=== PATIENT | female | born 1945 | race Caucasian/White ===

== ENCOUNTER 2018-03-07 18:07 | Emergency (ER) | payer MEDICARE, BC ==
[~2018-03-07] VITALS: Ht 160 cm; Wt 81.7 kg
[~2018-03-07 18:07] MED LIST: ACETAMINOPHEN325 M1 PO; AEROECLIPSE II1 EACH MISC; ALBUTEROL2.5 MG/3 M INH; ASPIR 8181 MG PO; ASPIRIN EC81 MG PO; ATORVASTATIN CA40 MG PO; BIAXIN250 MG PO; CENTRUM SILVER1 EAC5 PO; DEMADEX20 MG PO; DOCUSATE PO; ELIQUIS5 MG PO; FOLIC ACID1 MG PO; FUROSEMIDE40 MG PO; HYDROXYZINE HCL25 MG PO; K-TAB10 MEQ PO; LACTULOSE10 GM/15 M PO; LASIX20 MG PO; LEVOTHYROXINE150 MCG PO; LIVER COMPLEX1 EACH PO; LOPERAMIDE2 MG PO; LUTEIN40 MG PO; MELOXICAM15 MG PO; METOLAZONE5 MG PO; METOPROLOL SUCC25 MG PO; MIRALAX17 GM PO; MOVE FREE JOIN1 EACH PO; MULTIVITAMINS1 EAC7 PO; NORCO 5-325 TA1 EACH PO; NOVOLIN N100 UNIT/1 SUB-Q; NYSTATIN100000 UN1 PO; PEPCID20 MG PO; PERCOCET 5-3251 EACH PO; POTASSIUM CHLO20 ME1 PO; PRAVASTATIN SOD40 MG PO; PREDNISONE20 MG PO; PROMETHAZINE HC25 M1 PO; PROVENTIL HFA6.7 GM INH; RISPERDAL0.5 MG PO; ROZEREM8 MG PO; SENNA8.6 MG PO; SPIRONOLACTONE50 MG PO; TACROLIMUS1 MG PO; TRAZODONE HCL150 MG PO; TRAZODONE HCL50 MG PO; VITAMIN A25000 UNIT PO; VITAMIN C100 MG PO; VITAMIN D1000 UNI1 PO; VITAMIN E1000 UNI1 PO; XIFAXAN550 MG PO; ZINC SULFATE220 M1 PO; ZITHROMAX250 MG PO; ZITHROMAX500 MG PO; ZOFRAN4 MG PO
[2018-03-07] MEDS ORDERED: PREDNISONE20 MG PO (19:25)
[2018-03-07] MEDS ORDERED: CLARITHROMYCIN500 MG PO (19:25)
== END 2018-03-07 19:42 | disposition home or self-care (01) ==
LOC: ED 18:07
DX: J20.9 Acute bronchitis, unspecified (principal); I50.9 Heart failure, unspecified; E11.40 Type 2 diabetes mellitus with diabetic neuropathy, unspecified; E03.9 Hypothyroidism, unspecified; J45.909 Unspecified asthma, uncomplicated; M32.9 Systemic lupus erythematosus, unspecified; E78.00 Pure hypercholesterolemia, unspecified; Z90.710 Acquired absence of both cervix and uterus; Z88.0 Allergy status to penicillin; Z88.1 Allergy status to other antibiotic agents; Z88.5 Allergy status to narcotic agent; Z88.2 Allergy status to sulfonamides; Z88.8 Allergy status to other drugs, medicaments and biological substances; Z79.51 Long term (current) use of inhaled steroids; Z79.52 Long term (current) use of systemic steroids; Z79.82 Long term (current) use of aspirin; Z79.899 Other long term (current) drug therapy
CPT/HCPCS: 71046; 99283-25; J7512

== ENCOUNTER 2021-05-19 07:46 | Inpatient (IN) | payer MEDICARE, BC ==
[~2021-05-19] VITALS: Ht 160 cm; Wt 80.2 kg
[~2021-05-19 07:46] MED LIST changes: +CLARITHROMYCIN500 MG PO
[2021-05-19] MEDS ORDERED: TORSEMIDE20 MG PO (08:02)
[2021-05-19] MEDS ORDERED: LEVOTHYROXINE125 MCG PO (08:02)
[2021-05-19] MEDS ORDERED: TRAZODONE HCL100 MG PO (08:02)
[2021-05-19] MEDS ORDERED: METOPROLOL TART25 MG PO (08:02)
[2021-05-20] MEDS ORDERED: DICLOFENAC SOD100 G1 TOP (11:20)
[2021-05-20] MEDS ORDERED: MULTI VITAMIN1 EACH PO (12:35)
[2021-05-20] MEDS ORDERED: VITAMIN C1000 MG PO (12:36)
[2021-05-20] MEDS ORDERED: VITAMIN D31250 MC1 PO (12:38)
--- NOTE | 2021-05-20 16:30 | HP ---
[facility] [address], [place] [address] Signed ADMISSION DATE: 05/19/2021 REASON FOR ADMISSION: Small bowel obstruction. HISTORY OF PRESENT ILLNESS: This 75-year-old white woman, who is originally from [place], has been a for over 7 years. She came to live near her son, who does live locally. He apparently according to the patient does have some underlying other issues including drug addiction and so on. Indeed, the patient lives at [facility] and it is somewhat unusual arrangement from what I understand. For the past few weeks, the patient has had increasing vague abdominal pain. She began having nausea and vomiting, presented to the emergency room, where she was evaluated by Dr. Sha Mon. Her evaluation included a CT scan of the abdomen showed markedly dilated stomach and proximal small bowel and complete decompression of the small bowel beginning in a relatively proximal level related to a relatively discrete transition point in the left upper abdomen. The patient has undergone hysterectomy in the distant past as well as abdominoplasty. The patient has a rare and unusual of a prior history of constrictive pericarditis causing progressive hepatopathy and other issues. This was several years ago. In any case, pericardiectomy allowed for complete resolution of her problem and she continues to do well overall. Her other medical issues include congestive heart failure, neuropathy, hypothyroidism, self-described lupus, diabetes, hypercholesterolemia, history of pericarditis as described. PAST SURGICAL HISTORY: Include breast reduction, abdominoplasty, hysterectomy, multiple ankle operations particularly on the right side ultimately culminating in ankle fusion. ALLERGIES: She is self described as having allergies to penicillin and Keflex, angioedema; Valium, angioedema; meperidine, angioedema; sulfacetamide and tetracycline, angioedema. SOCIAL HISTORY: She is not working. She is on a fixed income. She is a as described. Electronically Signed By: CHUCK PAREDES MD 05/20/21 7310 PATIENT NAME: AGIL SCHMITZ HISTORY AND PHYSICAL DATE OF : 43 REPORT #: [id number] PHYSICIAN: CHUCK PAREDES MD PCP: HANK DAMON MD REPORT IS CONFIDENTIAL AND NOT TO BE RELEASED WITHOUT AUTHORIZATION [facility] [address], [place] [address] Signed CURRENT MEDICATIONS: Include Synthroid 125 mcg p.o. daily, metoprolol 25 mg p.o. daily, trazodone 100 mg p.o. daily, and torsemide 20 mg p.o. daily. REVIEW OF SYSTEMS: Since the nasogastric tube was in place, she has been feeling much better. She has had no blood per rectum or hematemesis. She does not have much in the way of abdominal pain at this time. PHYSICAL EXAMINATION: GENERAL: Pleasant woman, who looks to be in no severe distress; she is not systemically toxic. VITAL SIGNS: Temperature is 98.5, blood pressure 138/76, pulse oximetry on room air is 97%, pulse rate is 96, respirations 16 to 19. NECK: Shows no thyromegaly or cervical adenopathy. Trachea is midline. Supplemental oxygen is in place. CHEST: Shows normal respiratory excursion without wheeze or rhonchi. ABDOMEN: Rather large, but scaphoid and flat overall. There are small incisions likely related to prior hysterectomy and other interventions. Palpation reveals fullness of the abdomen. No focal tenderness and certainly no peritonitis. EXTREMITIES: Show no clubbing, cyanosis, or edema. LABORATORY STUDIES: Shows white count 10.0, hematocrit 49.6, platelets 251,000. D-dimer was considered 1.20, normal is up to 0.5. Her Chem profile shows a chloride of only 91, glucose is 154, alkaline phosphatase elevated at 132. Troponin high sensitivities 8.9 (normal) and BNP 301 (normal less than 450). Imaging studies were reviewed in detail include abdominal and chest CT. She shows no evidence of pulmonary embolism. She does have multiple pulmonary nodules, which are of uncertain etiology. She has some residual material within the trachea suggestive of mucus and right pleural thickening and calcification. Subacute-appearing left anterolateral rib fractures were noted. It is noted that in March, the patient did have a fall and this may account for that finding. ASSESSMENT: Review of the CT scan and her clinical diagnosis suggest severe and high-grade small bowel obstruction, specifically noted for very good decompression presumably downstream from the obstructive site. Electronically Signed By: CHUCK PAREDES MD 05/20/21 7310 PATIENT NAME: GAIL SCHMITZ HISTORY AND PHYSICAL DATE OF : 43 REPORT #: [id number] PHYSICIAN: CHUCK PAREDES MD PCP: HANK DAMON MD REPORT IS CONFIDENTIAL AND NOT TO BE RELEASED WITHOUT AUTHORIZATION [facility] [address], [place] [address] Signed She has already been admitted with a nasogastric tube for decompression and is given IV fluids. We will watch carefully and repeat a KUB tomorrow. She has no strict indication for emergent operation at this time specifically, nontoxic, nonhypotensive, has no significant pain. Of special note, Dr. Damon as her primary physician and has already evaluated her. His chart notes were reviewed in detail. COVID testing has thus far been proven negative. Her numerous medical problems will be comanaged by Dr. Damon, it is clear. MD SUNDAR Bolaños/ELIA /[id number] cc: MD Sha Pepper MD Copies: HANK DAMON MD, WILLIAM S MD ~ Electronically Signed By: CHUCK PAREDES MD 05/20/21 1630 PATIENT NAME: GAIL SCHMITZ HISTORY AND PHYSICAL DATE OF : 43 REPORT #: [id number] PHYSICIAN: CHUCK PAREDES MD PCP: HANK DAMON MD REPORT IS CONFIDENTIAL AND NOT TO BE RELEASED WITHOUT AUTHORIZATION
--- NOTE | 2021-05-22 22:00 | OR ---
[facility] [address], [place] [address] Signed DATE OF OPERATION: 05/19/2021 SURGEON: Chuck Paredes MD PREOPERATIVE DIAGNOSES: 1. Complete small-bowel obstruction, proximal small bowel. 2. History of constrictive pericarditis requiring pericardiectomy. POSTOPERATIVE DIAGNOSIS: Complete small-bowel obstruction related to proximal mesenteric sclerosing lesion of mesentery (question sclerosing mesenteritis-like lesion) PROCEDURE: 1. Exploratory laparotomy, lysis of adhesions and excision of central sclerosing lesion of small-bowel mesentery with resection portion of jejunum. Difficult, prolonged 2. Iubi-zs-qzts functional end-to-end enteroenterostomy. 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 Hank Damon and has a past medical history including constrictive pericarditis, for which she had congestive hepatopathy and end-stage problems, in that regard, ultimately, salvage by complete pericardiectomy. She was admitted with protracted nausea and vomiting on May 19, 2021, having been evaluated in the emergency room. A CT scan showed a high-grade obstruction with proximal small-bowel dilatation as well as marked gastric distention. A nasogastric tube was placed allowing for decompression of stomach. She does have a past surgical history of abdominoplasty as well as hysterectomy, but no prior history of bowel obstruction or other issue. She is admitted at this time having failed conservative management over the past 48 hours for exploration of the abdomen with remedy of the bowel obstruction. The risks of bleeding, infection, need for bowel resection, recurrent disease and other unforeseen complications was reviewed in detail. She understands and wished to proceed. FINDINGS: Indeed there was impressive proximal small-bowel distention only about 20 cm from the ligament of Treitz proper. The bowel was completely obstructed and drawn together in a dense cicatrix in the mesentery with complete decompression downstream of jejunal bowel Electronically Signed By: CHUCK PAREDES MD 05/22/21 2200 PATIENT NAME: GAIL SCHMITZ OPERATIVE REPORT DATE OF : 43 REPORT #: [id number] PHYSICIAN: CHUCK PAREDES MD PCP: HANK DAMON MD REPORT IS CONFIDENTIAL AND NOT TO BE RELEASED WITHOUT AUTHORIZATION [facility] [address], [place] [address] Signed loops. The segments of bowel that were obstructed were rather multiple and in aggregate approximately 1-1/2 to 2 feet of small bowel was resected. Proximal jejunum was able to be anastomosed to the impressively decompressed distal bowel, in a rnyt-al-nbss configuration (functional end-to-end). The mesenteric defect was completely closed . Of special note, several downstream segments of small-bowel had the beginnings of such cicatrical formation. Those were minimal compared to the dominant lesion today, however. There was no evidence of carcinomatosis proper. The colon had numerous diverticula and stool filled the colon itself. At conclusion, jejunal continuity has been restored and the dominant offending sclerosing lesion has been resected in conjunction with the obstructed jejunal segment. 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 DESCRIPTION OF PROCEDURE: The patient was brought to the operating room, given a general endotracheal anesthetic. Preoperative antibiotic clindamycin was given. Sequential compression device stockings used. Heparin was not given as the patient has refused the last two doses. After satisfactory general endotracheal anesthesia, a Moore catheter was placed. The abdomen was then prepared with a chlorhexidine solution and draped sterilely. An incision was made above and below the umbilicus allowing for entry into the abdomen. There was no sign of ascites or carcinomatosis. The omentum was well-positioned over the abdominal contents. In the left upper quadrant, which ultimately proved to be only 20-30 cm from the ligament of Treitz was dilated small-bowel loops and they were densely adherent to the root of the mesentery in the proximal jejunum. The incision was extended somewhat inferiorly and superiorly to allow for better examination. The dominant portion of intra-abdominal bowel loops was completely decompressed and scantly 1 cm in diameter. The more proximal bowel was dilated quite markedly to at least 4 cm and possibly more. The offending obstruction was found to be in the mesentery of the proximal small-bowel (jejunum). Multiple small-bowel loops were entrapped in this area. The dilated more proximal duct easily identified and viable. So, the effort was made taking down the adhesions to better characterize the bowel loops that were encumbered. It became clear that the dense cicatrix at the base of the mesentery would be impossible to free up from the small bowel. On that basis, resectional therapy was deemed most advisable. Electronically Signed By: CHUCK PAREDES MD 05/22/21 3244 PATIENT NAME: GAIL SCHMITZ OPERATIVE REPORT DATE OF : 43 REPORT #: [id number] PHYSICIAN: CHUCK PAREDES MD PCP: HANK DAMON MD REPORT IS CONFIDENTIAL AND NOT TO BE RELEASED WITHOUT AUTHORIZATION [facility] [address], [place] [address] Signed An area of obvious viability proximally was marked with a silk suture and a small-bowel distally somewhat freed up from the mesenteric sclerosing lesion and also demarcated. Sequential application of hemostats and tonsil clamp to the mesentery of the offending scar and bowel was undertaken securing the vascular pedicles with 3-0 silk sutures or 2-0 silk sutures as necessary. Once the segment of bowel was completely freed and the dominant portion of the sclerosing lesion removed. Plans were made for anastomosis. The small-bowel was examined distal to the area of recent inquiry and there were at least two areas downstream that had the beginning formations of similar such scarring. These areas were taken down with electrocautery dissection with special care to avoid entry into the bowel or compromise of bowel viability. Due to the very different sizes of the proximal jejunum and the distal jejunum, a pkub-id-daoq anastomosis was deemed most advisable. A stapled anastomosis was most appropriate. The transected staple line was extremely watertight and durable. Silk suture was used to align the proximal very dilated bowel with the distal very decompressed bowel. A corner of the staple device was trimmed with electrocautery and the ampoules of a AMANDA stapling device used (60 mm load size) to fashion a hdcd-ls-rgrs jejunojejunostomy. The site was sewn into a two-layer technique of running 3-0 Vicryl in the mucosal layer and interrupted 3-0 silk for the serosal layer. There appeared to be a good viable anastomosis provided and though not as long as 6 cm certainly twice the luminal diameter of the decompressed small-bowel already encountered. The mesentery defect was reapproximated with interrupted 3-0 silk suture on each side so as to avoid intraparietal herniation. Irrigation was undertaken copiously and the small-bowel returned to its natural anatomic position. The omentum was applied over the abdominal contents and the wound closed with running #1 PDS in a bidirectional fashion. Subcutaneous tissue was irrigated and the skin closed with running subcuticular 3-0 Vicryl. Steri-Strips were applied as was Acticoat dressing. In retrospect at is entirely possible that the primary pathologic process was that of sclerosing mesenteritis, however, final pathology report is pending. Additionally noted was the opening of the specimen on the back table including the area of cicatrix at the root of the mesentery causing the obstruction. There were two notable foreign bodies, one was a square brick-like concretion and the other a seed-like foreign body. Chuck Paredes MD Electronically Signed By: CHUCK PAREDES MD 05/22/212199 PATIENT NAME: GAIL SCHMITZ OPERATIVE REPORT DATE OF : 43 REPORT #: [id number] PHYSICIAN: CHUCK PAREDES MD PCP: HANK DAMON MD REPORT IS CONFIDENTIAL AND NOT TO BE RELEASED WITHOUT AUTHORIZATION [facility] [address], [place] [address] Signed SUNDAR/MODL /[id number] cc: Hank Damon MD Copies: HANK DAMON MD ~ Electronically Signed By: CHUCK PAREDES MD 05/22/21 2200 PATIENT NAME: GAIL SCHMITZ OPERATIVE REPORT DATE OF : 43 REPORT #: [id number] PHYSICIAN: CHUCK PAREDES MD PCP: HANK DAMON MD REPORT IS CONFIDENTIAL AND NOT TO BE RELEASED WITHOUT AUTHORIZATION
--- NOTE | 2021-05-23 18:19 | EKG ---
[facility] [address] [facility] [place] [address] Signed Normal sinus rhythm Nonspecific T wave abnormality Abnormal ECG When compared with ECG of 06-MAY-2016 14:04, No significant change was found Confirmed by ALVIN MALAGON MD ([id number]) on 05/23/2021 6:19:14 PM Electronically Signed By: ALVIN MALAGON MD 05/23/21 1819 PATIENT NAME: GAIL SCHMITZ LOU Electrocardiogram DATE OF : 43 PHYSICIAN: ALVIN MALAGON MD REPORT #: [id number] REPORT IS CONFIDENTIAL AND NOT TO BE RELEASED WITHOUT AUTHORIZATION
--- NOTE | 2021-05-23 18:25 | EKG ---
[facility] [address] [facility] [place] [address] Signed Sinus rhythm with premature atrial complexes Nonspecific T wave abnormality Abnormal ECG When compared with ECG of 21-MAY-2021 10:37, (Unconfirmed) premature atrial complexes are now present Confirmed by ALVIN MALAGON MD ([id number]) on 05/23/2021 6:24:56 PM Electronically Signed By: ALVIN MALAGON MD 05/23/21 1825 PATIENT NAME: GAIL SCHMITZ Electrocardiogram DATE OF : 43 PHYSICIAN: ALVIN MALAGON MD REPORT #: [id number] REPORT IS CONFIDENTIAL AND NOT TO BE RELEASED WITHOUT AUTHORIZATION
--- NOTE | 2021-05-27 08:07 | EKG ---
[facility] [address] [facility] [place] [address] Signed Sinus tachycardia Incomplete left bundle branch block ST \T\ T wave abnormality, consider inferolateral ischemia Abnormal ECG When compared with ECG of 23-MAY-2021 02:15, premature atrial complexes are no longer present Incomplete left bundle branch block is now present Confirmed by ALVIN MALAGON MD ([id number]) on 05/27/2021 8:07:13 AM Electronically Signed By: ALVIN MALAGON MD 05/27/21 0807 PATIENT NAME: GAIL SCHMITZ Electrocardiogram DATE OF : 43 PHYSICIAN: ALVIN MALAGON MD REPORT #: [id number] REPORT IS CONFIDENTIAL AND NOT TO BE RELEASED WITHOUT AUTHORIZATION
--- NOTE | 2021-05-27 23:55 | EKG ---
[facility] [address] [facility] [place] [address] Signed Atrial fibrillation with rapid ventricular response Abnormal ECG When compared with ECG of 26-MAY-2021 17:21, Atrial fibrillation has replaced Sinus rhythm T wave inversion no longer evident in Inferior leads T wave inversion no longer evident in Lateral leads Confirmed by HANK DAMON MD ([id number]) on 05/27/2021 11:55:33 PM Electronically Signed By: HANK DAMON MD 05/27/21 2355 PATIENT NAME: GAIL SCHMITZ Electrocardiogram DATE OF : 43 PHYSICIAN: HANK DAMON MD REPORT #: [id number] REPORT IS CONFIDENTIAL AND NOT TO BE RELEASED WITHOUT AUTHORIZATION
--- NOTE | 2021-05-28 13:50 | DS ---
[facility] [address], [place] [address] Signed ADMISSION DATE: 05/19/2021 DISCHARGE DATE: 05/28/2021 DATE OF SURGERY: 05/21/2021. FINAL DIAGNOSES: 1. Multiple abdominal abscesses/fluid collections. 2. Proximal small-bowel obstruction. PROCEDURES: 1. Laparotomy with small-bowel resection and standard stapled ourh-up-nist anastomosis. 2. Multiple chest x-rays and abdominal x-rays. 3. CT scan of abdomen and pelvis. HISTORY OF PRESENT ILLNESS: Natasha is a 75-year-old female who actually presented with what looked like shortness of breath. The hospitalist service recognized that she actually probably had a bowel obstruction. She had been admitted and a consult had been made to the General surgery service to Dr. Paredes. She was taken the operating room then on 05/21/2021. She had an area of her proximal jejunum that had to be resected and a standard qxcf-zc-jvdk anastomosis was performed, stapled and was sutured. Her intraop and postop course initially seemed to be unremarkable. Dr. Paredes had to be out of town. I was covering in his absence. When I met Natasha the first day, she seemed to be in respiratory distress and often this will be fluid overload. I was able to talk with Natasha and she made it very clear to me that she wanted no more surgeries. I expressed my significant concern that if we did not find something soon that her condition would more than likely decline and that she would probably not live through this admission. She once again reiterated to me that she did not want any additional surgeries or procedures. She wanted to be a DNR/DNI with no tube feeds or heroic measures. We had made significant efforts to contact her family. Initially, she did not want to contact her son. Apparently, they have a strained relationship. She wanted me to contact her niece Krupa riley in [place], [place], which is at least 8 hours away. That phone number was no longer in use. She was asked us to call her brother in [place]. His name is Yordan. Unfortunately, he is retired. We were unable to find a phone number. Eventually, she allowed me to call her son, Nixon. Each day Natasha continued to decline. She steadfastly maintain her desire to have no surgery or additional procedures. We did move her over to our ICU for her BiPAP. There was some thought she had COPD with fluid overload and a chronically elevated left hemidiaphragm. We did change her antibiotics. That made no difference. We did get her CO2 from the 90s down into the 50s that did help make her mentation more clear. But again she maintained her desire to have no Electronically Signed By: GRADY TELLEZ MD 05/28/21 1350 PATIENT NAME: NATASHA SCHMITZ DISCHARGE SUMMARY DATE OF : 43 REPORT #: [id number] PHYSICIAN: GRADY TELLEZ MD PCP: HANK DAMON MD REPORT IS CONFIDENTIAL AND NOT TO BE RELEASED WITHOUT AUTHORIZATION [facility] [address] [place] [address] Signed surgeries or any additional interventions. She amazingly had a relatively benign abdominal exam. She had expected induration underneath her incision. She never flinched, grimaced or made any indication that she had pain. To me she denied pain each day I examined her. Each day I expressed my concern. Each day she steadfastly told me no more surgeries. Eventually, we were able to contact her son. He then was able to contact other family members and we found the new phone number for her niece, Krupa. Indeed, she is the medical power of crew leader/control room operator and I asked that she fax that information up to our ICU. It looks like it is dated from 2019. That I had spoke with Krupa in great detail about our concerns for Natasha. She ended up talking to multiple family members. Our hospitalist service had changed over in the new hospitalist and repeated the x-ray and it was no different. Urine was unremarkable. Blood cultures have been drawn. CT scan and pelvis had been ordered at that time. We had held off because Natasha had told us no additional surgeries or interventions. It showed multiple areas of fluid collections and abscesses throughout her abdomen. The oral contrast did leak out into the abdomen. Obviously that raises a concern for anastomotic leak. I came back in the hospital to talk with the patient and her nurse and the respiratory therapist along with our hospitalist. Unfortunately, her hospitalist got called away for admission. We did reach Krupa on the telephone once again. We explained the dire situation that Natasha was in. We would really do not feel at this point she could survive another surgery. Even then Natasha was able to tell us no more surgeries. Krupa and the family had agreed that Krupa was the medical ipgqq-is-aevzsdjq and therefore we wanted to maintain the wishes of Natasha and therefore, we had made her comfort care only. We had a long phone conversation on speaker phone with our respiratory therapist, our nurse, and myself. By about 0226 hours in the morning, she . Our ER doctor was able to pronounce her time. I have come in this morning to speak with the team and provide her dictation. I will be calling her niece Krupa later today and go over things with her once again. Thank you this ends dictation on Lenora Schmitz please send copies to my office the patient's chart Dr. joaquín Paredes. Grady Tellez MD ALB/MODL /[id number] Electronically Signed By: GRADY TELLEZ MD 05/28/21 1350 PATIENT NAME: NATASHA SCHMITZ DISCHARGE SUMMARY DATE OF : 43 REPORT #: [id number] PHYSICIAN: GRADY TELLEZ MD PCP: HANK DAMON MD REPORT IS CONFIDENTIAL AND NOT TO BE RELEASED WITHOUT AUTHORIZATION [facility] [address], [place] [address] Signed cc: MD Grady Bloaños MD UNKNOWN DOCTOR Copies: CHUCK PAREDES MD, ANDREW L MD ~ Electronically Signed By: GRADY TELLEZ MD 05/28/21 1350 PATIENT NAME: NATASHA SCHMITZ DISCHARGE SUMMARY DATE OF : 43 REPORT #: [id number] PHYSICIAN: GRADY TELLEZ MD PCP: HANK DAMON MD REPORT IS CONFIDENTIAL AND NOT TO BE RELEASED WITHOUT AUTHORIZATION
--- NOTE | 2021-06-05 10:36 | PATH ---
[facility] [address] [facility] [place], [place] [address] Signed THIS IS AN ADDENDUM REPORT SPECIMEN(S): A PROX SMALL BOWEL WITH CENTRAL OBSTRUCTION SPECIMEN(S): B MESENTERIC PERITONEAL NODULE SPECIMEN SOURCE: A. PROX SMALL BOWEL WITH CENTRAL OBSTRUCTION B. MESENTERIC PERITONEAL NODULE CLINICAL HISTORY: Assess for sclerosing mesenteritis. FINAL PATHOLOGIC DIAGNOSIS: A. Proximal small bowel, segmental resection: - Mesenteric fibromatosis. - Small bowel mucosa with no histopathologic abnormality. - Two lymph nodes with no evidence of malignancy. - Viable surgical margins, negative for fibromatosis. B. Mesenteric peritoneal nodule, excision: - Cauterized dense fibrocollagenous connective tissue, final diagnosis pending additional studies. - See Comment. COMMENT: Sections of the proximal small bowel demonstrate a dominant mass within the peripheral fibroadipose tissue comprised of spindle cells with vesicular nuclei growing in fascicles in a dense fibrous stroma. This mass is 4.9 cm in greatest dimension. The spindle cell proliferation infiltrates into the bowel wall up to the submucosa. There is no prominent inflammatory component of the lesion, though inflammation (mostly acute) is seen near the submucosal interface. The spindle cells are positive for nuclear beta-catenin and SMA, but negative for S100, CD34, DOG1, and CD117. 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 As part of [employer], this case was reviewed by another member of our pathology staff with subspecialty training in gastrointestinal pathology. Regarding specimen B: The tissue is pending additional work up with immunohistochemical stains. The diagnosis and results of the stains will be PATIENT NAME: GAIL SCHMITZ PATHOLOGY DATE OF : 43 REPORT #: [id number] PHYSICIAN: LEXUS PATHOLOGY PCP: HANK DAMON MD REPORT IS CONFIDENTIAL AND NOT TO BE RELEASED WITHOUT AUTHORIZATION [facility] [address] [place], [place] [address] Signed reported in an addendum. NAL:cml:C2NR MICROSCOPIC EXAMINATION: Histologic sections of all submitted blocks are examined by light microscopy. These findings, together with the gross examination, support the pathologic diagnosis. GROSS DESCRIPTION: Two specimens are received in two containers, labeled "CC." A. The specimen, labeled "CC, A," and designated on the requisition "proximal small bowel central obstruction *assess for sclerosing mesenteritis," is received in formalin and consists of a previously opened, 58.7 cm long, from 4.2 up to 9.2 cm in circumference bowel segment with attached adipose tissue up to 2.0 cm wide. The end with the smaller circumference is closed by a 3.2 cm long staple line, the staple line is removed, and the underlying tissue is inked blue, and adjacent to the staple line is a black suture. The opposing end is closed by a 5.6 cm long staple line which is removed, and the underlying tissue is inked orange. 2.5 cm away from the orange ink staple line is an additional black suture that is associated with a serosal nodule. The suture is inked green. The bowel serosa is burkett, mostly smooth, glistening, and has multiple burkett-white, ill-defined, adherent firm nodules from less than 0.1 up to 0.7 cm in greatest dimension. The serosal nodules are 5.0 cm from the blue ink staple line and 2.7 cm from the orange inked staple line. Additionally, the attached adipose tissue containing multiple nodular-like areas of burkett-white induration from 1.2 up to 4.9 cm in greatest dimension. The largest of the nodules is previously incised, measures 4.9 x 4.8 x 2.9 cm upon reconstruction, and grossly appears to invade into the bowel. Involving the nodule is a 3.6 x 2.5 cm area of brown, rough, possible cauterization that is inked black(Note this area has been previously incised and a grossly definitive margin cannot be determined). The nodule grossly appears to invade through the mucosa, submucosa, and abuts the mucosa. The nodule does not grossly appear to involve the mucosa directly. The nodule is 1.8 cm from the nearest vascular root margin which has a black suture and is inked red, 10.4 cm from the blue ink staple line, and 15.2 cm from the orange ink staple line. Additionally, the nodule grossly appears to adhere the bowel onto itself. The largest nodule has a PATIENT NAME: GAIL SCHMITZ PATHOLOGY DATE OF : 43 REPORT #: [id number] PHYSICIAN: LEXUS MERCEDES PCP: HANK DAMON MD REPORT IS CONFIDENTIAL AND NOT TO BE RELEASED WITHOUT AUTHORIZATION [address] [address] Signed burkett-white, somewhat whorled cut surface with focal areas of slight jimenes discoloration. The remaining nodules have a burkett-white, whorled cut appearance Some of the remaining nodules do not grossly appear to invade through the muscularis into the submucosa or involving the mucosa. The additional nodules are 0.3 cm from the nearest radial margin, 4.2 cm from the orange inked staple line and 1.7 cm from the blue ink staple line. Many of the nodules contain black sutures. The remaining mucosa is burkett with usual folds and without a discrete mass/lesion. The attached adipose tissue is palpated for lymph nodes and to pink-burkett, partially fat replaced lymph node candidates that are 0.7 and 1.2 cm in greatest dimension are found. Clean Room Operator sections are submitted as follows: A1 blue inked margin to nearest nodule A2 remainder of blue inked margin cut surface down A3-A4 orange inked margin cut surface down A5 green inked serosal nodule with suture A6 red ink vascular root margin cut surface down A7-A8 largest nodule to black inked area A9-A11 largest nodule to bowel mucosa A12 largest nodule to adjacent adipose tissue and additional nodule A13-A14 additional nodules A15 serosal nodules A16 two lymph node candidates in toto A17 remaining mucosa B. The specimen, labeled "CC, B," and designated on the requisition "mesenteric peritoneal nodule," is received in formalin and consists of a ragged, cauterized, firm, 1.0 x 0.4 x 0.2 cm, burkett-white tissue piece. The specimen is submitted in toto in one cassette (B1). AI (under the direct supervision of a pathologist) The Gross Description was prepared using a voice recognition system. The report was reviewed for accuracy; however, sound-alike word errors, addition and/or deletions may occur. If there is any question about this report, please contact Client Services. PERFORMING LABORATORY: The technical component was performed by [facility], [address] [place] [id number] (Asset Protection Greeter: Cara Grijalva MD; CLIA# [id number]). [facility], [address] [place] [address]. 107, PATIENT NAME: GAIL SCHMITZ PATHOLOGY DATE OF : 43 REPORT #: [id number] PHYSICIAN: LEXUS PATHOLOGY PCP: HANK DAMON MD REPORT IS CONFIDENTIAL AND NOT TO BE RELEASED WITHOUT AUTHORIZATION [facility] [address] [place], [place] [address] Signed [place] [address] (CLIA# [id number]). ADDITIONAL NOTES: Immunohistochemical and/or in situ hybridization studies were performed on this case with the appropriate positive controls that react as expected. This test was developed and its performance characteristics determined by [facility]. It has not been cleared or approved by the U.S. Food and Drug Administration. The FDA has determined that such clearance or approval is not necessary. This test is used for clinical purposes. It should not be regarded as investigational or for research. [facility] is certified under the Clinical Laboratory Improvement Amendments of 1988 (CLIA) as qualified to perform high complexity clinical laboratory testing. This assay has not been validated for specimens that have been decalcified. The technical component was performed by [facility], [address] [place] [id number] (Asset Protection Greeter: Cara Grijalva MD; CLIA# [id number]). Professional interpretation was performed by [facility], [address] [place] [address] (CLIA# [id number]). REASON FOR ADDENDUM: To add results of additional testing. ADDENDUM PATHOLOGIC DIAGNOSIS: B. Mesenteric peritoneal nodule, excision: - Cauterized dense fibrocollagenous connective tissue, compatible with fibromatosis, see Comment. ADDENDUM COMMENT: Sections demonstrate a fragment of hypocellular, dense fibrocollagenous tissue with small bland spindle cells. Of note, there is significant cautery artifact. A Beta-catenin immunohistochemical stain (with appropriately staining controls) was performed and, though there is high background staining, shows the spindle cells have nuclear and cytoplastic positivity, which supports the diagnosis of fibromatosis. This was reviewed in consultation with another member of our pathology staff with subspecialty training in gastrointestinal pathology. NAL:cml ADDITIONAL NOTES: PATIENT NAME: GAIL SCHMITZ PATHOLOGY DATE OF : 43 REPORT #: [id number] PHYSICIAN: LEXUS MERCEDES PCP: HANK DAMON MD REPORT IS CONFIDENTIAL AND NOT TO BE RELEASED WITHOUT AUTHORIZATION [facility] [address] [place], [place] [address] Signed Immunohistochemical and/or in situ hybridization studies were performed on this case with the appropriate positive controls that react as expected. This test was developed and its performance characteristics determined by [facility]. It has not been cleared or approved by the U.S. Food and Drug Administration. The FDA has determined that such clearance or approval is not necessary. This test is used for clinical purposes. It should not be regarded as investigational or for research. [facility] is certified under the Clinical Laboratory Improvement Amendments of 1988 (CLIA) as qualified to perform high complexity clinical laboratory testing. This assay has not been validated for specimens that have been decalcified. The technical component was performed by [facility], [address] [place] [id number] (Asset Protection Greeter: Cara Grijalva MD; CLIA# [id number]). [facility], [address] [place] [id number] (CLIA# [id number]). REASON FOR ADDENDUM: To add results of additional testing. ADDENDUM COMMENT: The purpose of this addendum is to report results of a previously performed desmin immunohistochemical stain (with appropriately staining controls) on block A1 that was inadvertently not reported. The Desmin demonstrates patchy positivity within the spindle cell proliferation. The final diagnosis remains unchanged. Diagnostician: Elmira Self MD Pathologist Electronically Signed 06/05/2021 Copies: ~ PATIENT NAME: GAIL SCHMITZ PATHOLOGY DATE OF : 43 REPORT #: [id number] PHYSICIAN: LEXUS MERCEDES PCP: HANK DAMON MD REPORT IS CONFIDENTIAL AND NOT TO BE RELEASED WITHOUT AUTHORIZATION
== END 2021-05-28 02:26 | DRG 329 ==
LOC: ED 07:46 → CCU 16:16 → MS 16:16 → CCU 05-25 18:02
PROVIDERS: ADMIT Colon & Rectal Surgery; ATTEND Colon & Rectal Surgery
PROC: 0DBA0ZZ Excision of Jejunum, Open Approach (ICD-10-PCS; principal; 2021-05-19)
PROC: 0DNA0ZZ Release Jejunum, Open Approach (ICD-10-PCS; 2021-05-19)
PROC: 0DBW0ZZ Excision of Peritoneum, Open Approach (ICD-10-PCS; 2021-05-19)
PROC: 5A09457 Assistance with Respiratory Ventilation, 24-96 Consecutive Hours, Continuous Positive Airway Pressure (ICD-10-PCS; 2021-05-26)
DX: K63.89 Other specified diseases of intestine (principal); J96.01 Acute respiratory failure with hypoxia; J96.02 Acute respiratory failure with hypercapnia; J44.1 Chronic obstructive pulmonary disease with (acute) exacerbation; I50.32 Chronic diastolic (congestive) heart failure; J98.11 Atelectasis; R65.10 Systemic inflammatory response syndrome (SIRS) of non-infectious origin without acute organ dysfunction; K65.1 Peritoneal abscess; E03.9 Hypothyroidism, unspecified; E78.5 Hyperlipidemia, unspecified; Z51.5 Encounter for palliative care; F41.8 Other specified anxiety disorders; Z66 Do not resuscitate; J44.9 Chronic obstructive pulmonary disease, unspecified; Z20.822 Contact with and (suspected) exposure to COVID-19; E78.00 Pure hypercholesterolemia, unspecified; Z86.74 Personal history of sudden cardiac arrest; Z98.890 Other specified postprocedural states; Z90.710 Acquired absence of both cervix and uterus; Z88.0 Allergy status to penicillin; Z88.8 Allergy status to other drugs, medicaments and biological substances; Z88.2 Allergy status to sulfonamides; Z88.1 Allergy status to other antibiotic agents; Z79.899 Other long term (current) drug therapy; M32.9 Systemic lupus erythematosus, unspecified; E11.9 Type 2 diabetes mellitus without complications; E55.9 Vitamin D deficiency, unspecified; Z86.718 Personal history of other venous thrombosis and embolism; Z86.16 Personal history of COVID-19; E86.0 Dehydration; R91.1 Solitary pulmonary nodule; M35.00 Sjogren syndrome, unspecified; K66.0 Peritoneal adhesions (postprocedural) (postinfection)
CPT/HCPCS: 00840; 36415; 36569; 36600; 71045; 71260; 74018; 74177; 80048; 80053; 80076; 81001; 82803; 83735; 83880; 84484; 84550; 85025; 85379; 88305; 88307; 88341; 88342; 93005; 93010; 94640; 94660; 94667; 94668; 94760; 94762; 97110; 97161; 97530; 99285-25; C1751; C9803; J0131; J1100; J1170; J1644; J1885; J1940; J1956; J2270; J2310; J2405; J2930; J3010; J3475; J3480; J7040; J7060; J7121; Q9967; U0003